=== PATIENT | male | born 1960 | race Caucasian/White ===

== ENCOUNTER 2020-10-13 11:03 | Outpatient (CLI) | payer BC ==
[2020-10-13] MEDS ORDERED: CHOL10003 PO (12:39)
[2020-10-13] MEDS ORDERED: [UNRECOGNIZED DRUG - OTHER] PO (12:39)
[2020-10-13] MEDS ORDERED: [UNRECOGNIZED DRUG - OTHER] PO (12:44)
== END 2020-10-13 23:59 | disposition home or self-care (01) ==
LOC: STAR 11:03
PROVIDERS: ATTEND Surgery
DX: Z01.812 Encounter for preprocedural laboratory examination (principal); Z20.822 Contact with and (suspected) exposure to COVID-19; K40.90 Unilateral inguinal hernia, without obstruction or gangrene, not specified as recurrent
CPT/HCPCS: 93005; U0003

== ENCOUNTER 2020-10-19 11:05 | Day surgery (SDC) | payer BC ==
[~2020-10-19] VITALS: Ht 165.1 cm; Wt 66.0 kg
[~2020-10-19 11:05] MED LIST: CHOL10003 PO; [UNRECOGNIZED DRUG - OTHER] PO; [UNRECOGNIZED DRUG - OTHER] PO
[2020-10-19] MEDS ORDERED: LACTATED RINGERS 1,000 ML IV SCH ×2 (11:30)
[2020-10-19] MEDS ORDERED: CHLORHEXIDINE 15 ML UDC ONE (11:34)
[2020-10-19 11:44] VITALS: BP 120/71
[2020-10-19] MEDS ORDERED: CHLORHEXIDINE 15 ML UDC PO ONE (12:00)
[2020-10-19] MEDS ORDERED: MIDAZOLAM 1 MG/ML, 2ML ONE (12:55)
[2020-10-19] MEDS ORDERED: FENTANYL PF 250 MCG/5ML ONE (12:55)
[2020-10-19] MEDS ORDERED: FENTANYL PF 100 MCG/2ML IV PRN (13:00)
[2020-10-19] MEDS ORDERED: PROMETHAZINE 25 MG/ML, 1ML IVPush PRN (13:00)
[2020-10-19] MEDS ORDERED: DIPHENHYDRAMINE 50 MG/ML, 1ML IVPush PRN (13:00)
[2020-10-19] MEDS ORDERED: ACETAMINOPHEN 325 MG TABLET PO PRN (13:00)
[2020-10-19] MEDS ORDERED: MEPERIDINE/PF 25MG/0.5ML IVPush PRN (13:00)
[2020-10-19] MEDS ORDERED: hydrALAzine 20 MG/ML, 1ML IV PRN (13:00)
[2020-10-19] MEDS ORDERED: HALOPERIDOL 5 MG/ML IV PRN (13:00)
[2020-10-19] MEDS ORDERED: HYDROmorphone 1 MG/ML, 1ML INJ IVPush PRN (13:00)
[2020-10-19] MEDS ORDERED: LABETALOL 5MG/ML, 20ML IV PRN (13:00)
[2020-10-19] MEDS ORDERED: OXYcodone 5 MG/5 ML ORAL.SOL UDC PO PRN ×2 (13:00→14:30)
[2020-10-19] MEDS ORDERED: BUPIVACAINE/PF 0.5% ONE (13:29)
[2020-10-19] MEDS ORDERED: EPINEPHRINE 1 MG/ML, 1ML ONE (13:29)
[2020-10-19] MEDS ORDERED: NEOSTIGMINE 1 MG/ML, 10ML ONE (14:18)
[2020-10-19] MEDS ORDERED: PROPOFOL 10 MG/ML, 20ML ONE (14:18)
[2020-10-19] MEDS ORDERED: ONDANSETRON 2MG/ML, 2ML ONE (14:18)
[2020-10-19] MEDS ORDERED: ROCURONIUM 10MG/ML,5ML ONE (14:18)
[2020-10-19] MEDS ORDERED: GLYCOPYRROLATE 0.2MG/1ML, 5ML ONE (14:18)
[2020-10-19] MEDS ORDERED: SUCCINYLCHOLINE 20 MG/ML, 10ML ONE (14:18)
[2020-10-19] MEDS ORDERED: CEFAZOLIN 1,000 MG ONE (14:18)
[2020-10-19] MEDS ORDERED: DEXAMETHASONE 4 MG/ML, 1ML ONE (14:18)
[2020-10-19] MEDS ORDERED: OXYC5TAB2 PO (14:24)
== END 2020-10-19 16:00 | disposition home or self-care (01) ==
LOC: OR 11:05
PROVIDERS: ATTEND Surgery
DX: K40.90 Unilateral inguinal hernia, without obstruction or gangrene, not specified as recurrent (principal); E78.5 Hyperlipidemia, unspecified; F12.90 Cannabis use, unspecified, uncomplicated; F17.210 Nicotine dependence, cigarettes, uncomplicated; Z88.2 Allergy status to sulfonamides; Z91.030 Bee allergy status
CPT/HCPCS: 49650; C1781; J0171; J0330; J0690; J1100; J2250; J2405; J2704; J2710; J3010; J7120; S2900